=== PATIENT | female | born 1960 | race Caucasian/White ===

== ENCOUNTER 2017-06-10 00:40 | Observation (INO) | payer OTHER ==
[~2017-06-10] VITALS: Ht 162.6 cm; Wt 75.5 kg
[2017-06-10] VITALS (8 sets, daily range): BP systolic 89–127; BP diastolic 54–83; PULSE 53–77; TEMP 97.4–98.8
[~2017-06-10 00:40] MED LIST: ASPIRIN 81M81 MG/TA2 PO; ATIVAN 0.50.5 MG/TAB PO; ATIVAN 1MG T1 MG/TAB PO; ATIVAN0.5 MG PO; DEPRESSION MED; ESTRADIOL0.1 MG/24 TD; FLAGYL500 MG PO; GLUCOPHAGE1000 MG PO; LEVAQUIN 5500 MG/TA1 PO; LISINOPRIL/HCTZ1 TA1 PO; METFORMIN500 MG PO; MICROZIDE12.5 MG; MOTRIN 800800 MG/TAB PO; NORCO 325 MG-51 TAB PO; PERCOCET 325 MG1 TA2 PO; PRILOSEC 20MG20 MG PO; PRINIVIL20 MG PO; PROMETHAZINE12.5 M5 PO; TOPROL XL 25MG25 MG PO; TYLENOL 500MG500 MG PO; TYLENOL EXTRA500 M1 PO; ZESTRIL 10MG10 MG PO; ZESTRIL2.5 MG PO
[2017-06-10 01:11] LABS: BASO # 0.1 (0.0-0.2); BASO % 0.7 % (0.0-2.0); EOS # 0.8 (0.0-0.7); EOS % 7.6 % (0-4.0); GRAN # 5.6 (1.4-6.5); GRAN % 52.6 % (42.2-75.2); HEMATOCRIT 42.2 % (37.0-47.0); HEMOGLOBIN 13.9 g/dl (12.5-16.0); LYMPH # 3.4 (1.2-3.4); LYMPH % 31.8 % (20.0-51.0); MEAN CELL VOLUME 89 fl (80.0-100.0); MEAN CORPUSCULAR HEMOGLOBIN 29 pg (27.0-31.0); MEAN CORPUSCULAR HGB CONC 33 g/dl (33.0-37.0); MEAN PLATELET VOLUME 11.2 fl (7.4-10.4); MONO # 0.8 (0.1-0.6); PLATELET COUNT 254 K/mm3 (130-400); RED BLOOD COUNT 4.77 M/mm3 (4.10-5.30); REDCELL DISTRIBUTION WIDTH-CV 14.5 % (11.5-14.5); WHITE BLOOD COUNT 10.7 K/mm3 (4.8-10.8)
[2017-06-10 01:21] LABS: ADJUSTED CALCIUM 9.7 mg/dL (8.4-10.2); ALANINE AMINOTRANSFERASE 31 U/L (9-52); ALBUMIN 4.3 gm/dL (3.5-5.0); ALKALINE PHOSPHATASE 114 U/L (50-136); ANION GAP 14 mmol/L (7-16); BILIRUBIN,TOTAL 0.4 mg/dL (0.0-1.0); BLOOD UREA NITROGEN 21 mg/dL (7-17); CALCIUM 9.9 mg/dL (8.4-10.2); CARBON DIOXIDE 21 mmol/L (22-30); CHLORIDE 109 mmol/L (98-107); CREATININE, serum 1.04 mg/dL (0.52-1.25); GLUCOSE 106 mg/dL (74-106); LIPASE 67 U/L (23-300); SODIUM 143 mmol/L (137-145); TOTAL PROTEIN 7.3 gm/dL (6.4-8.2)
[2017-06-10 01:32] LABS: TROPONIN-I < 0.012 ng/mL (0.000-0.034)
[2017-06-10 02:03] LABS: PH 6 (5-8); SQUAMOUS EPITHELIAL 0-2 /hpf; URINE APPEARANCE Clear; URINE BACTERIA None Seen /hpf; URINE BILIRUBIN Negative (NEGATIVE); URINE BLOOD 1+ (NEGATIVE); URINE COLOR Yellow; URINE GLUCOSE Negative (NEGATIVE); URINE KETONE Negative (NEGATIVE); URINE RBC 0-2 /hpf; URINE UROBILINOGEN Negative (NEGATIVE); URINE WBC 0-2 /hpf
[2017-06-10 04:38] LABS: PROTHROMBIN TIME 10.9 SECONDS (9.7-12.8)
[2017-06-10 04:40] LABS: PARTIAL THROMBOPLASTIN TIME 33.2 SECONDS (26.0-37.0)
[2017-06-10 04:42] LABS: MAGNESIUM 2.1 mg/dL (1.6-2.3)
[2017-06-10 04:51] LABS: B-TYPE NATRIURETIC PEPTIDE 49 pg/mL (0-125)
[2017-06-10 08:02] LABS: C-REACTIVE PROTEIN 1.1 mg/dL (0.0-0.9); CHOLESTEROL 147 mg/dL (120-200); HDL CHOLESTEROL 34 mg/dL; LDL CHOLESTEROL 83 mg/dL; TRIGLYCERIDE 150 mg/dL
[2017-06-10 08:14] LABS: TROPONIN-I < 0.012 ng/mL (0.000-0.034)
[2017-06-11] VITALS (10 sets, daily range): BP systolic 99–142; BP diastolic 65–80; PULSE 65–118; TEMP 97.4–98.8
[2017-06-11 07:11] LABS: BASO % 0.5 % (0.0-2.0); EOS % 0.5 % (0-4.0); GRAN # 4.7 (1.4-6.5); GRAN % 81.3 % (42.2-75.2); HEMATOCRIT 42.1 % (37.0-47.0); HEMOGLOBIN 13.7 g/dl (12.5-16.0); LYMPH % 16.9 % (20.0-51.0); MEAN CELL VOLUME 88 fl (80.0-100.0); MEAN CORPUSCULAR HEMOGLOBIN 29 pg (27.0-31.0); MEAN CORPUSCULAR HGB CONC 33 g/dl (33.0-37.0); MEAN PLATELET VOLUME 11.4 fl (7.4-10.4); MONO % 0.5 % (1.7-9.3); PLATELET COUNT 250 K/mm3 (130-400); REDCELL DISTRIBUTION WIDTH-CV 14.2 % (11.5-14.5); WHITE BLOOD COUNT 5.7 K/mm3 (4.8-10.8)
[2017-06-11 07:24] LABS: ADJUSTED CALCIUM 9.6 mg/dL (8.4-10.2); ALBUMIN 3.8 gm/dL (3.5-5.0); BILIRUBIN,TOTAL 0.5 mg/dL (0.0-1.0); CALCIUM 9.4 mg/dL (8.4-10.2); CREATININE, serum 0.86 mg/dL (0.52-1.25); POTASSIUM 4.3 mmol/L (3.4-5.0); TOTAL PROTEIN 6.7 gm/dL (6.4-8.2)
[2017-06-11 07:40] LABS: ERYTHROCYTE SEDIMENTATION RATE 8 mm/hr (0-30)
[2017-06-11] MEDS ORDERED: TOPAMAX 25MG25 M1 PO (14:13)
[2017-06-11] MEDS ORDERED: MAG-OX 400400 MG/TAB PO (14:13)
[2017-06-11] MEDS ORDERED: MEDROL 4MG DOSPA4 MG PO (14:15)
[2017-06-11] MEDS ORDERED: MIDRIN 325 MG-11 CAP PO (14:18)
== END 2017-06-11 17:26 | disposition home or self-care (01) ==
LOC: COL.ER 00:40 → MEDICAL 02:03
PROVIDERS: Emergency Medicine; Nurse Practitioner Family
DX: R53.1 Weakness (principal); R20.2 Paresthesia of skin; R42 Dizziness and giddiness; R07.9 Chest pain, unspecified; E11.9 Type 2 diabetes mellitus without complications; I25.2 Old myocardial infarction; I10 Essential (primary) hypertension; Z90.49 Acquired absence of other specified parts of digestive tract; R51 Headache
CPT/HCPCS: A9502; A9585; G0378; G8978-GP; G8979-GP; G8987-GO; G8988-GO; J2405; J2785; J7030

== ENCOUNTER → 2017-06-22 | Outpatient (CLI) | payer OTHER ==
[~2017-06-22] MED LIST changes: +MAG-OX 400400 MG/TAB PO; +MEDROL 4MG DOSPA4 MG PO; +MIDRIN 325 MG-11 CAP PO; +TOPAMAX 25MG25 M1 PO
[2017-06-22 16:43] LABS: HEMATOCRIT 40.7 % (37.0-47.0); HEMOGLOBIN 13.6 g/dl (12.5-16.0); MEAN CELL VOLUME 87 fl (80.0-100.0); MEAN CORPUSCULAR HEMOGLOBIN 29 pg (27.0-31.0); MEAN CORPUSCULAR HGB CONC 33 g/dl (33.0-37.0); MEAN PLATELET VOLUME 11.4 fl (7.4-10.4); PLATELET COUNT 248 K/mm3 (130-400); RED BLOOD COUNT 4.67 M/mm3 (4.10-5.30); WHITE BLOOD COUNT 8.4 K/mm3 (4.8-10.8)
[2017-06-22 17:15] LABS: ERYTHROCYTE SEDIMENTATION RATE 1 mm/hr (0-30)
== END ==
LOC: COL.LAB 15:49
DX: I63.9 Cerebral infarction, unspecified (principal); R51 Headache

== ENCOUNTER 2017-08-28 09:08 | Emergency (ER) | payer OTHER ==
[~2017-08-28] VITALS: Ht 162.6 cm; Wt 72.7 kg
[2017-08-28 09:14] VITALS: TEMP 98.4
[2017-08-28 10:27] LABS: COLLECTION METHOD CLEAN CATCH
[2017-08-28 10:34] LABS: BASO # 0.1 (0.0-0.2); BASO % 0.5 % (0.0-2.0); EOS # 0.4 (0.0-0.7); EOS % 3.1 % (0-4.0); GRAN # 9.8 (1.4-6.5); HEMATOCRIT 43.6 % (37.0-47.0); HEMOGLOBIN 14.5 g/dl (12.5-16.0); LYMPH # 2.6 (1.2-3.4); LYMPH % 18.4 % (20.0-51.0); MEAN CELL VOLUME 85 fl (80.0-100.0); MEAN CORPUSCULAR HEMOGLOBIN 28 pg (27.0-31.0); MEAN CORPUSCULAR HGB CONC 33 g/dl (33.0-37.0); MEAN PLATELET VOLUME 10.9 fl (7.4-10.4); MONO # 1.1 (0.1-0.6); MONO % 7.6 % (1.7-9.3); PLATELET COUNT 272 K/mm3 (130-400); RED BLOOD COUNT 5.12 M/mm3 (4.10-5.30); WHITE BLOOD COUNT 14.1 K/mm3 (4.8-10.8)
[2017-08-28 10:46] LABS: BILIRUBIN,TOTAL 1.2 mg/dL (0.0-1.0); CALCIUM 9.6 mg/dL (8.4-10.2); CREATININE, serum 0.95 mg/dL (0.52-1.25); MUCOUS Present /lpf; PH 5 (5-8); POTASSIUM 3.7 mmol/L (3.4-5.0); TOTAL PROTEIN 7.6 gm/dL (6.4-8.2); URINE APPEARANCE Clear; URINE BACTERIA None Seen /hpf; URINE BILIRUBIN Negative (NEGATIVE); URINE BLOOD 2+ (NEGATIVE); URINE COLOR Yellow; URINE GLUCOSE Negative (NEGATIVE); URINE KETONE Negative (NEGATIVE); URINE LEUKOCYTE ESTERASE Negative (NEGATIVE); URINE PROTEIN(semi-quant) Negative (NEGATIVE); URINE UROBILINOGEN Negative (NEGATIVE)
[2017-08-28 10:57] LABS: ADJUSTED CALCIUM 9.4 mg/dL (8.4-10.2); ALBUMIN 4.3 gm/dL (3.5-5.0); C-REACTIVE PROTEIN 16.4 mg/dL (0.0-0.9)
[2017-08-28] MEDS ORDERED: FLAGYL500 MG PO (12:18)
[2017-08-28] MEDS ORDERED: NORCO 325 MG-51 TAB PO (12:18)
[2017-08-28] MEDS ORDERED: ZOFRAN 4MG T4 MG/TAB PO (12:18)
[2017-08-28] MEDS ORDERED: CIPRO 500MG TA500 MG PO (12:18)
[2017-08-28 12:28] VITALS: BP 129/91; PULSE 78
== END 2017-08-28 12:45 | disposition home or self-care (01) ==
LOC: COL.ER 09:08
PROVIDERS: Emergency Medicine
DX: K57.92 Diverticulitis of intestine, part unspecified, without perforation or abscess without bleeding (principal); G81.94 Hemiplegia, unspecified affecting left nondominant side; G43.909 Migraine, unspecified, not intractable, without status migrainosus; Z79.82 Long term (current) use of aspirin
CPT/HCPCS: J1170; J2405; J7030; Q9967

== ENCOUNTER → 2017-11-06 | Outpatient (CLI) | payer OTHER ==
[~2017-11-06] MED LIST changes: +CIPRO 500MG TA500 MG PO; +ZOFRAN 4MG T4 MG/TAB PO
== END ==
LOC: COL.RAD 11-05 11:15
DX: G43.909 Migraine, unspecified, not intractable, without status migrainosus (principal)
CPT/HCPCS: A9585

== ENCOUNTER → 2017-11-23 | Outpatient (CLI) | payer OTHER | LOC: COL.LAB 10:37 | DX: M31.6 Other giant cell arteritis (principal) ==

== ENCOUNTER → 2017-12-14 | Outpatient (CLI) | payer OTHER | LOC: COL.RAD 07:20 | DX: R10.9 Unspecified abdominal pain (principal); Z87.19 Personal history of other diseases of the digestive system; Z90.49 Acquired absence of other specified parts of digestive tract ==

== ENCOUNTER → 2018-06-20 | Outpatient (CLI) | payer MEDICAID ==
[~2018-06-20] MED LIST changes: +AMOXICILLIN 8751 TAB PO; +DECADRON 4MG TAB4 MG PO; +TORADOL 10MG TA10 MG PO
[2018-06-20 11:53] LABS: HEMATOCRIT 43.1 % (37.0-47.0); HEMOGLOBIN 14.6 g/dl (12.5-16.0); MEAN CELL VOLUME 84 fl (80.0-100.0); MEAN CORPUSCULAR HEMOGLOBIN 29 pg (27.0-31.0); MEAN CORPUSCULAR HGB CONC 34 g/dl (33.0-37.0); MEAN PLATELET VOLUME 11.1 fl (7.4-10.4); PLATELET COUNT 267 K/mm3 (130-400); RED BLOOD COUNT 5.11 M/mm3 (4.10-5.30); REDCELL DISTRIBUTION WIDTH-CV 15.1 % (11.5-14.5)
[2018-06-20 13:04] LABS: ERYTHROCYTE SEDIMENTATION RATE 5 mm/hr (0-30)
== END ==
LOC: COL.LAB 11:23
DX: G81.90 Hemiplegia, unspecified affecting unspecified side (principal); G50.1 Atypical facial pain

== ENCOUNTER 2018-07-08 14:06 | Emergency (ER) | payer MEDICAID ==
[~2018-07-08] VITALS: Ht 165.1 cm; Wt 76.4 kg
[~2018-07-08 14:06] MED LIST changes: -AMOXICILLIN 8751 TAB PO; -DECADRON 4MG TAB4 MG PO; -TORADOL 10MG TA10 MG PO
[2018-07-08 14:20] VITALS: TEMP 97
[2018-07-08] MEDS ORDERED: TORADOL 10MG TA10 MG PO (16:49)
[2018-07-08] MEDS ORDERED: DECADRON 4MG TAB4 MG PO (16:50)
[2018-07-08 17:38] LABS: BASO % 0.2 % (0.0-2.0); GRAN # 11.2 (1.4-6.5); GRAN % 84.3 % (42.2-75.2); HEMATOCRIT 43.1 % (37.0-47.0); HEMOGLOBIN 14.3 g/dl (12.5-16.0); LYMPH # 1.6 (1.2-3.4); LYMPH % 11.8 % (20.0-51.0); MEAN CELL VOLUME 86 fl (80.0-100.0); MEAN CORPUSCULAR HEMOGLOBIN 28 pg (27.0-31.0); MEAN CORPUSCULAR HGB CONC 33 g/dl (33.0-37.0); MEAN PLATELET VOLUME 11.1 fl (7.4-10.4); MONO # 0.4 (0.1-0.6); MONO % 3.3 % (1.7-9.3); PLATELET COUNT 289 K/mm3 (130-400); RED BLOOD COUNT 5.03 M/mm3 (4.10-5.30); REDCELL DISTRIBUTION WIDTH-CV 15.3 % (11.5-14.5)
[2018-07-08 17:54] LABS: ALBUMIN 4.1 gm/dL (3.5-5.0); BILIRUBIN,TOTAL 0.5 mg/dL (0.0-1.0); CALCIUM 9.4 mg/dL (8.4-10.2); CREATININE, serum 0.79 mg/dL (0.52-1.25); POTASSIUM 4.1 mmol/L (3.4-5.0)
[2018-07-08] MEDS ORDERED: AMOXICILLIN 8751 TAB PO (18:00)
[2018-07-08 18:19] VITALS: BP 134/72; PULSE 98
== END 2018-07-08 18:20 | disposition home or self-care (01) ==
LOC: COL.ER 14:06
PROVIDERS: Family Medicine
DX: K57.92 Diverticulitis of intestine, part unspecified, without perforation or abscess without bleeding (principal)

== ENCOUNTER 2018-09-05 16:00 | Outpatient (RCR) | payer MEDICAID ==
[~2018-09-05 16:00] MED LIST changes: +AMOXICILLIN 8751 TAB PO; +DECADRON 4MG TAB4 MG PO; +TORADOL 10MG TA10 MG PO
== END 2018-09-09 15:24 | disposition home or self-care (01) ==
LOC: MKS.ESL.PT 16:00
DX: I69.354 Hemiplegia and hemiparesis following cerebral infarction affecting left non-dominant side (principal)

== ENCOUNTER 2018-12-03 15:00 | Outpatient (RCR) | payer MEDICAID | END 2018-12-04 | disposition home or self-care (01) | LOC: MKS.ESL.PT | DX: I69.354 Hemiplegia and hemiparesis following cerebral infarction affecting left non-dominant side (principal) ==

== ENCOUNTER 2019-03-04 16:15 | Outpatient (RCR) | payer MEDICAID | END 2019-03-05 | disposition still patient (30) | LOC: MKS.ESL.OT | DX: I69.354 Hemiplegia and hemiparesis following cerebral infarction affecting left non-dominant side (principal); Z90.49 Acquired absence of other specified parts of digestive tract | CPT/HCPCS: G0283-GP ==

== ENCOUNTER 2019-05-01 16:11 | Emergency (ER) | payer MEDICAID ==
[~2019-05-01] VITALS: Ht 165.1 cm; Wt 72.7 kg
[2019-05-01 18:11] LABS: BILIRUBIN,TOTAL 0.5 mg/dL (0.0-1.0); CREATININE, serum 0.99 (0.52-1.25); POTASSIUM 4.3 mmol/L (3.4-5.0); URIC ACID 6.4 mg/dL (2.5-6.2)
[2019-05-01 18:20] LABS: BASO % 0.3 % (0.0-2.0); EOS # 0.2 (0.0-0.7); EOS % 1.7 % (0-4.0); GRAN # 5.3 (1.4-6.5); GRAN % 57.6 % (42.2-75.2); HEMATOCRIT 44.7 % (37.0-47.0); HEMOGLOBIN 14.6 g/dl (12.5-16.0); LYMPH % 32.7 % (20.0-51.0); MEAN CELL VOLUME 87 fl (80.0-100.0); MEAN CORPUSCULAR HEMOGLOBIN 29 pg (27.0-31.0); MEAN CORPUSCULAR HGB CONC 33 g/dl (33.0-37.0); MEAN PLATELET VOLUME 11.1 fl (7.4-10.4); MONO # 0.7 (0.1-0.6); MONO % 7.4 % (1.7-9.3); PLATELET COUNT 268 K/mm3 (130-400); RED BLOOD COUNT 5.12 M/mm3 (4.10-5.30)
[2019-05-01] MEDS ORDERED: INDOCIN50 MG PO (18:28)
[2019-05-01] MEDS ORDERED: PREDNISONE10 MG PO (18:47)
[2019-05-01 18:49] VITALS: BP 126/89; PULSE 89; TEMP 98.6
== END 2019-05-01 18:58 | disposition home or self-care (01) ==
LOC: COL.ER 16:11
PROVIDERS: Emergency Medicine; Physician Assistant
DX: M25.571 Pain in right ankle and joints of right foot (principal); E79.0 Hyperuricemia without signs of inflammatory arthritis and tophaceous disease; E11.9 Type 2 diabetes mellitus without complications; F17.210 Nicotine dependence, cigarettes, uncomplicated; Z98.890 Other specified postprocedural states; Z90.49 Acquired absence of other specified parts of digestive tract; Z86.73 Personal history of transient ischemic attack (TIA), and cerebral infarction without residual deficits; Z79.82 Long term (current) use of aspirin
CPT/HCPCS: J1885

== ENCOUNTER → 2019-05-23 | Outpatient (CLI) | payer MEDICAID ==
[~2019-05-23] MED LIST changes: +INDOCIN50 MG PO; +PREDNISONE10 MG PO
[2019-05-23 09:38] LABS: BASO % 0.1 % (0.0-2.0); EOS % 0.1 % (0-4.0); GRAN # 11.5 (1.4-6.5); GRAN % 80.9 % (42.2-75.2); HEMATOCRIT 44.1 % (37.0-47.0); HEMOGLOBIN 14.5 g/dl (12.5-16.0); LYMPH # 1.9 (1.2-3.4); LYMPH % 13.2 % (20.0-51.0); MEAN CELL VOLUME 87 fl (80.0-100.0); MEAN CORPUSCULAR HEMOGLOBIN 29 pg (27.0-31.0); MEAN CORPUSCULAR HGB CONC 33 g/dl (33.0-37.0); MEAN PLATELET VOLUME 11.5 fl (7.4-10.4); MONO # 0.8 (0.1-0.6); MONO % 5.3 % (1.7-9.3); PLATELET COUNT 269 K/mm3 (130-400); RED BLOOD COUNT 5.08 M/mm3 (4.10-5.30); REDCELL DISTRIBUTION WIDTH-CV 15.7 % (11.5-14.5)
[2019-05-23 09:47] LABS: ALBUMIN 4.3 gm/dL (3.5-5.0); BILIRUBIN,TOTAL 0.5 mg/dL (0.0-1.0); CALCIUM 9.5 mg/dL (8.4-10.2); CHOLESTEROL RISK RATIO 4.5; CREATININE, serum 0.8 (0.52-1.25); POTASSIUM 4.4 mmol/L (3.4-5.0); URIC ACID 5.2 mg/dL (2.5-6.2)
[2019-05-23 10:16] LABS: TSH w REFLEX 0.381 uIU/mL (0.465-4.680)
== END ==
LOC: COL.LAB 09:07
PROVIDERS: Registered Nurse
DX: E13.9 Other specified diabetes mellitus without complications (principal)

== ENCOUNTER 2019-07-03 13:30 | Outpatient (RCR) | payer MEDICAID | END 2019-07-07 | disposition still patient (30) | LOC: MKS.ESL.OT | DX: G81.94 Hemiplegia, unspecified affecting left nondominant side (principal) ==

== ENCOUNTER → 2019-08-13 | Outpatient (CLI) | payer MEDICAID | LOC: COL.RAD 10:32 | DX: M79.671 Pain in right foot (principal) ==

== ENCOUNTER 2019-10-03 19:33 | Emergency (ER) | payer MEDICAID ==
[~2019-10-03] VITALS: Ht 149.9 cm; Wt 80.0 kg
[2019-10-03 20:08] VITALS: BP 163/88; TEMP 97.9
[2019-10-03 21:13] LABS: BASO % 0.2 % (0.0-2.0); EOS # 0.2 (0.0-0.7); EOS % 1.4 % (0-4.0); GRAN # 10.3 (1.4-6.5); GRAN % 74.4 % (42.2-75.2); HEMATOCRIT 42.1 % (37.0-47.0); LYMPH # 2.5 (1.2-3.4); LYMPH % 18.4 % (20.0-51.0); MEAN CELL VOLUME 89 fl (80.0-100.0); MEAN CORPUSCULAR HEMOGLOBIN 30 pg (27.0-31.0); MEAN CORPUSCULAR HGB CONC 33 g/dl (33.0-37.0); MEAN PLATELET VOLUME 11.6 fl (7.4-10.4); MONO # 0.7 (0.1-0.6); MONO % 5.3 % (1.7-9.3); PLATELET COUNT 293 K/mm3 (130-400); RED BLOOD COUNT 4.75 M/mm3 (4.10-5.30); REDCELL DISTRIBUTION WIDTH-CV 14.9 % (11.5-14.5)
[2019-10-03 21:19] LABS: ALBUMIN 3.9 gm/dL (3.5-5.0); BILIRUBIN,TOTAL 0.6 mg/dL (0.0-1.0); CREATININE, serum 0.71 (0.52-1.25); POTASSIUM 4.1 mmol/L (3.4-5.0); TOTAL PROTEIN 6.5 gm/dL (6.4-8.2)
[2019-10-03] MEDS ORDERED: PHENERGAN 25 TA25 MG PO (21:23)
[2019-10-03] MEDS ORDERED: CIPRO 500MG TA500 MG PO (21:23)
[2019-10-03] MEDS ORDERED: FLAGYL500 MG PO (21:23)
[2019-10-03] MEDS ORDERED: NORCO 325 MG-51 TAB PO (21:23)
[2019-10-03 23:20] VITALS: PULSE 67
[2019-10-03 23:23] LABS: COLLECTION METHOD CLEAN CATCH
[2019-10-03 23:28] LABS: PH 5 (5-8); SQUAMOUS EPITHELIAL 0-2 /hpf; URINE APPEARANCE Clear; URINE BACTERIA None Seen /hpf; URINE BILIRUBIN Negative (NEGATIVE); URINE BLOOD 1+ (NEGATIVE); URINE COLOR Yellow; URINE GLUCOSE Negative (NEGATIVE); URINE KETONE Negative (NEGATIVE); URINE LEUKOCYTE ESTERASE Negative (NEGATIVE); URINE NITRATE Negative (NEGATIVE); URINE PROTEIN(semi-quant) Negative (NEGATIVE); URINE RBC 0-2 /hpf; URINE UROBILINOGEN Negative (NEGATIVE)
== END 2019-10-03 23:20 | disposition home or self-care (01) ==
LOC: COL.ER 19:33
PROVIDERS: Emergency Medicine
DX: K57.32 Diverticulitis of large intestine without perforation or abscess without bleeding (principal)
CPT/HCPCS: J1170; J2550; J7030

== ENCOUNTER 2019-10-23 12:20 | Emergency (ER) | payer MEDICAID ==
[~2019-10-23] VITALS: Ht 165.1 cm; Wt 78.6 kg
[~2019-10-23 12:20] MED LIST changes: +PHENERGAN 25 TA25 MG PO
[2019-10-23 13:46] LABS: HEMATOCRIT 45.5 % (37.0-47.0); HEMOGLOBIN 15.1 g/dl (12.5-16.0); MEAN CELL VOLUME 87 fl (80.0-100.0); MEAN CORPUSCULAR HEMOGLOBIN 29 pg (27.0-31.0); MEAN CORPUSCULAR HGB CONC 33 g/dl (33.0-37.0); MEAN PLATELET VOLUME 11.5 fl (7.4-10.4); PLATELET COUNT 197 K/mm3 (130-400); RED BLOOD COUNT 5.24 M/mm3 (4.10-5.30); REDCELL DISTRIBUTION WIDTH-CV 15.4 % (11.5-14.5)
[2019-10-23 13:54] LABS: BILIRUBIN,TOTAL 0.7 mg/dL (0.0-1.0); C-REACTIVE PROTEIN 6.9 mg/dL (0.0-0.9); CREATININE, serum 0.82 (0.52-1.25); POTASSIUM 4.3 mmol/L (3.4-5.0); TOTAL PROTEIN 6.9 gm/dL (6.4-8.2)
[2019-10-23 14:35] LABS: BAND 6 % (0-10); LYMPHOCYTE 35 % (20.0-51.0); NEUTROPHILS 58 % (42.0-75.2); PLATELET ESTIMATE NORMAL (NORMAL)
[2019-10-23] MEDS ORDERED: ZOFRAN ODT4 MG PO (14:42)
[2019-10-23 15:00] VITALS: BP 110/78; PULSE 75; TEMP 97.8
== END 2019-10-23 15:00 | disposition home or self-care (01) ==
LOC: COL.ER 12:20
PROVIDERS: Physician Assistant
DX: J10.1 Influenza due to other identified influenza virus with other respiratory manifestations (principal); I25.2 Old myocardial infarction; Z86.73 Personal history of transient ischemic attack (TIA), and cerebral infarction without residual deficits; Z90.89 Acquired absence of other organs; Z79.52 Long term (current) use of systemic steroids; Z79.82 Long term (current) use of aspirin
CPT/HCPCS: J2405; J7030

== ENCOUNTER 2019-11-18 15:45 | Outpatient (RCR) | payer MEDICAID ==
[~2019-11-18 15:45] MED LIST changes: +ZOFRAN ODT4 MG PO
== END 2020-01-12 | disposition home or self-care (01) ==
LOC: MKS.ESL.PT
DX: I69.354 Hemiplegia and hemiparesis following cerebral infarction affecting left non-dominant side (principal)

== ENCOUNTER 2020-06-08 14:00 | Outpatient (RCR) | payer MEDICAID | END 2020-06-24 | disposition home or self-care (01) | LOC: MKS.ESL.PT | DX: F82 Specific developmental disorder of motor function (principal) ==